=== PATIENT | male | born 1995 | race Caucasian/White ===

== ENCOUNTER 2017-08-25 11:16 | Emergency (ER) | payer BC ==
[~2017-08-25] VITALS: Ht 182.9 cm; Wt 65.0 kg
[2017-08-25 11:27] VITALS: BP 143/78; PULSE 101; RESP 20; TEMP 98.6; O2SAT 100
[2017-08-25] MEDS ORDERED: VENTAER INH (11:32)
--- NOTE | 2017-08-25 11:37 | PD ---
HPI Chief Complaint: Medical Clearance Time Seen by Provider: 11:34 Travel History International Travel<30 days: No Contact w/Intl Traveler<30days: No Traveled to known affect area: No History of Present Illness HPI This is a 22-year-old male who presents via EMS for evaluation of epistaxis. He had a five-minute episode of bleeding from the left nostril while staying at a hotel this morning. Initially he did not want to come to the hospital to be evaluated for this however the police arrived and threatened the [place] act him if he did not come for evaluation of the nosebleed. The nosebleed has since stopped. He does report that he has been blowing his nose a lot recently. He admits to using LSD earlier this morning but denies any other drug use. He had one episode of emesis on route, he believes that he swallowed some of the blood. He denies current nausea. Denies chest pain, shortness of breath, suicidal or homicidal ideation, abdominal pain. He is not on any anticoagulants. He has no other complaints. He reports that his family is here to pick him up and bring him home to [place]. [facility] Past Medical History Asthma: Yes Tetanus Vaccination: < 5 Years Past Surgical History Other Surgery: Yes (nose) Social History Alcohol Use: Yes Tobacco Use: Yes Substance Use: Yes Allergies-Medications (Allergen,Severity, Reaction): Coded Allergies: No Known Allergies (Unverified , 08/25/17) Reported Meds & Prescriptions Reported Meds & Active Scripts Active Reported Ventolin Hfa 18 GM Inh (Albuterol Sulfate) 90 Mcg/Act Aer 2 Puff INH Q4H PRN Review of Systems Except as stated in HPI: all other systems reviewed are Neg Physical Exam Narrative GENERAL: Well-developed well-nourished male in no acute distress SKIN: Warm and dry. HEAD: Atraumatic. Normocephalic. EYES: Pupils equal and round. No scleral icterus. No injection or drainage. ENT: No nasal bleeding or discharge. Mucous membranes pink and moist. There is a little bit of dried blood in the left nare. NECK: Trachea midline. No JVD. CARDIOVASCULAR: Regular rate and rhythm. No murmur appreciated. RESPIRATORY: No accessory muscle use. Clear to auscultation. Breath sounds equal bilaterally. GASTROINTESTINAL: Abdomen soft, non-tender, nondistended. Hepatic and splenic margins not palpable. MUSCULOSKELETAL: No obvious deformities. No clubbing. No cyanosis. No edema. NEUROLOGICAL: Awake and alert. No obvious cranial nerve deficits. Motor grossly within normal limits. Normal speech. PSYCHIATRIC: Appropriate mood and affect; insight and judgment normal. Data Data Last Documented VS Vital Signs Date Time Temp Pulse Resp B/P (MAP) Pulse Ox O2 Delivery O2 Flow Rate FiO2 08/25/17 11:27 98.6 101 20 143/78 (99) 100 MDM Medical Decision Making Medical Screen Exam Complete: Yes Emergency Medical Condition: Yes Medical Record Reviewed: Yes Differential Diagnosis Anterior epistaxis, posterior epistaxis, rhinitis Narrative Course The patient's nosebleed spontaneously stopped after 5 minutes. He requires no further intervention. He is stable for discharge. Diagnosis Primary Impression: Epistaxis Additional Instructions: Follow-up with primary care as needed. If nosebleeding recurs, pinched the soft part of your nose for 30 minutes. If bleeding persists uncontrollably return to the emergency room. Med/Other Pt SpecificInfo: No Change to Meds Disposition: 01 DISCHARGE HOME Condition: Stable Elio Kim Aug 25, 2017 11:37
== END 2017-08-25 12:03 | disposition home or self-care (01) ==
LOC: NEPD 11:16
DX: R04.0 Epistaxis (principal); J45.909 Unspecified asthma, uncomplicated; Z72.0 Tobacco use; Z79.52 Long term (current) use of systemic steroids
CPT/HCPCS: 99283